=== PATIENT | female | born 1985 | race Caucasian/White ===

== ENCOUNTER 2024-01-02 10:01 | Emergency (ER) | payer OTHER, SELFPAY ==
[2024-01-02 10:06] VITALS: BP 154/93
--- NOTE | 2024-01-02 10:48 | ED.GENMED ---
History of Present Illness
General
Chief Complaint: Breathing Problem
Source: patient and family
Time Seen by Provider: 01/02/24 10:28
History of Present Illness
History of Present Illness:
38-year-old female with a history of 'long-haul' COVID, who takes a variety of different pulmonary medications every day, states that she was improving over the past few months with less need for rescue inhaler. However, her children got ill with a
URI and she then developed a 'junky' cough on or about December 13. She describes noticing wheezing at the end of her breath. She spoke to her pulmonary doctor via telemedicine on Sunday the and was put on a prednisone taper. She then
developed thrush, went to an urgent care, and was started ideation for that. By that Sunday she continued to have a productive cough and she called her doctor and was put on doxycycline for 7 days. She states she was 'never really short of
breath'. She continued to experience thrush like symptoms associated with a mild sore throat so she went to the urgent care again and had a strep test that was negative and was prescribed a can for 3 days which she was compliant with. She says she
was seen by her destination specialist on Sunday and she 'sounded clear'. However, since Sunday, she notes increasing productive cough, described as 'clear junk' associated with a hoarse voice for the last 3 weeks. She did have a headache yesterday that
was relieved with Advil. She called her destination specialist today and was referred to the emergency department to get a chest x-ray and a viral panel. Patient denies abdominal pain, leg swelling, nausea, vomiting, fever. She does have mild chest
discomfort likely from coughing she denies pleuritic chest pain.
Past History
Past History
ED Past Medical History: Other (Long COVID, sleep apnea)
ED Past Surgical History: and Tonsilectomy
Social History
Tobacco: Non-smoker
Alcohol: None
Drug: None
Personal:
Living: with family
Phy Exam
Physical Exam
Physical Exam:
GENERAL: Alert , in no apparent distress
EYE: pupils equal and reactive
NECK: Supple, no significant adenopathy.
ENT: o/p clr, mmm, no trismus, no drool, slightly hoarse voice, uvula midline, no exudate, no erythema, no abnormalities noted, no thrush noted.
CARDIAC: Regular rate and rhythm .
LUNGS: Clear breath sounds bilaterally, no acute respiratory distress, no wheezes/rales/rhonchi, speaks in full sentences easily
ABDOMEN: Soft, without focal tenderness, no r/g, no cvat
NEUROLOGICAL: Alert and oriented, no focal neuro deficits
SKIN: Warm and dry, skin intact.
MUSCULOSKELETAL: No edema, well perfused.
PSYCH: Normal and appropriate interaction.
Course
Orders/Labs/Results
Orders:
Orders
01/02/24 10:48
CR Chest - 2 Views Urgent
Comment:
Reason For Exam: cough, hx long haul covid
01/02/24 11:08
COVID-19 Antigen Urgent
Source: Nasal Swab
Influenza A+B Rapid Molecular Urgent
EMILIA Source: Nasal Swab
Specimen Description:
RSV [Respiratory Syncytial Virus] Urgent
EMILIA Source: Nasal Swab
Specimen Description:
Date Specimen was Collected: 01/02/24
Time Specimen was Collected: 11:01
Vital Signs
Initial and Last Documented VS:
Initial Vital Signs
Temp Pulse Resp BP Pulse Ox
97.7 F 65 18 154/93 100
01/02/24 10:06 01/02/24 10:06 01/02/24 10:06 01/02/24 10:06 01/02/24 10:06
Last Documented Vital Signs
Temp Pulse Resp BP Pulse Ox
97.7 F 69 18 132/71 99
01/02/24 10:06 01/02/24 12:42 01/02/24 12:42 01/02/24 12:42 01/02/24 12:42
*Critical Care Note
Total Time (30-74mins, 75-104mins- exclusive of procedures): Not Applicable
Update Note
Update Note:
Patient presents to the Emergency Department with __persistent cough and hoarse voice
Number and Complexity of Problems Addressed at the Encounter
� Chronic conditions affecting care:
� Acute Exacerbation and/or Progression of Chronic Illness:
� Differential Diagnosis includes: But not limited to worsening long COVID symptoms, bronchitis, pneumonia, etc.
Amount and/or Complexity of Data to be Reviewed and Analyzed
� I performed an independent evaluation of and my interpretation is:
EKG:
CT:
Xrays:cxr read by me nad
Laboratory Studies:unremarkable
Other:
� Review of other/old records reveals:
� Clinical information was obtained by an independent historian:
� Prescriptions/Medications Considered but not given:
� Further testing considered but not performed:
Risk of Complications and/or Morbidity or Mortality of Patient Management
� Social determinants of health affecting care:
� Discussion with other providers (PCP, Hospitalists, Consultants, etc):
� Escalation of care including admission/observation vs risk of discharge considered:call placed to pts pulmonary doctor. D/W DR calin quintero, aware of cxr and results here, agrees with plan to d/c and he will d/u with pt. pox
wnl, lungs cta, no further rec.
ED Attending Note
-
Portions of this chart may have been created with voice recognition software.� Occasional wrong word or��sound alike� substitutions may have occurred due to the inherent limitations of voice recognition software.
Discharge Plan
Departure
Patient Disposition: Home (Routine Discharge)
Date of Disposition: 01/02/24
Time of Disposition: 13:03
Patient with high blood pressure during this ER visit?: Yes
Condition: Good
Discharge Problem:
Cough
Instructions: Cough, Adult ED, BLOOD PRESSURE
Prescriptions:
No Action
levalbuterol HCl 0.63 MG/3 ML solution for nebulization
0.63 mg inhalation R TID
Dupixent Pen 300 MG/2 ML pen injector
300 mg SQ Q2W
fluticasone propionate [Flovent HFA] 220 mcg/actuation Hfa Aerosol Inhaler
2 puff INHALATION BID
Referrals:
Sia Ruggiero MD [Active] - Next open appointment
Mele Vazquez MD [Family Provider] -
Activity Restrictions/Additional Instructions:
IF YOU DEVELOP PERSISTENT FEVER, VOMITING, TROUBLE BREATHING, NEW/WORSENING CHEST PAIN, GET WORSE, OR OTHER WORRISOME SIGNS, GO TO THE ER IMMEDIATELy!
Interventions
Interventions:
*Risk Screen - Suicide Last Done: 01/02/24 10:06
*General Assessment Last Done: 01/02/24 10:06
*Neglect/Abuse Screening Last Done: 01/02/24 10:06
ED- Fall Risk Assessment Last Done: 01/02/24 10:53
*ED COVID-19 Vaccine History Last Done: 01/02/24 10:53
ED- Cardiac Assessment Last Done: 01/02/24 10:53
ED- Pulmonary Assessment Last Done: 01/02/24 10:53
Discharge Date and Time
Print Language: TUNISIAN
[2024-01-02 10:53] VITALS: BMI 35.8
[2024-01-02 11:08] VITALS: BP 126/62
[2024-01-02 11:32] LABS: COVID-19 Antigen Negative (Negative)
[2024-01-02 12:42] VITALS: BP 132/71
--- NOTE | 2024-01-02 13:55 | EDRN ---
Reviewed discharge instructions with patient. Verbalized understanding. Ambulated with steady gait to the lobby.
[2024-01-02 14:08] VITALS: BP 133/86
== END 2024-01-02 13:55 | disposition home or self-care (01) ==
LOC: EMR 10:01
PROVIDERS: EMERGENCY PHYSICIAN Emergency Medicine; FAMILY PHYSICIAN Family Medicine
DX: R05.9 Cough, unspecified (principal); Z86.16 Personal history of COVID-19; G47.30 Sleep apnea, unspecified
CPT/HCPCS: 99284; 71046; 87502; 87807; 87811

== ENCOUNTER 2024-12-10 17:30 | Emergency (ER) | payer OTHER, SELFPAY ==
[2024-12-10 17:34] VITALS: BP 146/102
--- NOTE | 2024-12-10 18:43 | ED.MUSCINJ ---
HPI-Injury
General
Chief Complaint: Musculo-Skeletal Complaint
Source: patient
Exam Limitations: none
Time Seen by Provider: 12/10/24 18:21
Nursing documentation reviewed up to this point in time: agreed with
History of Present Illness-Injury
Is this injury a work related problem?: No
Is pt an associate of [facility]?: No
Initial Injury comments:
Patient to ED with right 5th toe pain. States she hit to on light post. Initially toe looked displaced and she reports pushing toe back into position. Injury occurred just [employer]
Past History
Past History
ED Past Medical History: Other (Long COVID, sleep apnea)
ED Past Surgical History: and Tonsilectomy
Social History
Tobacco: Non-smoker
Alcohol: None
Drug: None
Personal:
Living: with family
Review of Systems
Review of Systems
Allergies reviewed?: Yes
All Other Systems: ROS reviewed and negative except as documented in HPI and ROS
Constitutional: Reports no symptoms
Musculoskeletal: Reports joint pain (pain to right 5th toe)
Skin: Reports no symptoms
Neurological: Reports no symptoms
Psychiatric: Reports no symptoms
Musculoskeletal Injury Exam
Musculoskeletal Injury Exam
Right Fifth Toe:
Pain with Movement?: Moderate
Tender to palpation?: Moderate
Soft tissue swelling?: Mild
External deformity and angulation?: None
Joint effusion?: None
Contusion?: Moderate
Hematoma-local bleeding into tissue?: Mild
Crepitus with movement?: No
Joint instability?: No
Malalignment/deformity?: No
Range of motion: Limited
Distal skin color and temperature: normal-warm & good color
Capillary Refill: normal
Normal distal neurovascular exam?: Yes
Peripheral Pulses: posterior tibial (right): 3+ and dorsalis pedis (right): 3+
Phy Exam
General Physical Exam
General Presentation: well appearing and no apparent distress
General age: appears stated age
General Skin: warm and dry
General Habitus: normal
General Mental: alert
Musculoskeletal Exam
Musculoskeletal Exam: neuro vasc intact
Skin Exam
Skin Exam: normal color, warm/dry and no rash
Psychiatric Exam
Psychiatric Exam: normal mood/affect
Injury Course
Orders/Labs/Results
Orders:
Orders
12/10/24 17:36
CR Foot - Right Min 3 Views Urgent
Comment:
Reason For Exam: injury
12/10/24 18:41
Genevieve Tape Right-Treatment ONCE
Cast Shoe Right-Treatment ONCE
*Radiology
Radiology exam reviewed: radiology read reviewed
*Pulse Oximetry
SaO2: 99
Oxygen Mode of Delivery: Room air
Patient hypoxic: no
*Critical Care Note
Total Time (30-74mins, 75-104mins- exclusive of procedures): Not Applicable
Update Note
Update Note:
Patient to ED with right 5th toe pain after hitting toe on light post. Xray concens fx to proximal phalanx #5. WIll genevieve tape toe, place in cast shoe. She is discharged home and will follow up with podiatry.
ED Attending Note
-
Portions of this chart may have been created with voice recognition software.� Occasional wrong word or��sound alike� substitutions may have occurred due to the inherent limitations of voice recognition software.
Discharge Plan
Departure
Patient Disposition: Home (Routine Discharge)
Date of Disposition: 12/10/24
Time of Disposition: 18:41
Patient with high blood pressure during this ER visit?: No
Condition: Good
Covid-19: Not Applicable
Discharge Problem:
Fracture of toe
Instructions: Ibuprofen, Using Cold for Pain, Toe Fracture ED
Prescriptions:
No Action
levalbuterol HCl 0.63 MG/3 ML solution for nebulization
0.63 mg inhalation R TID
Dupixent Pen 300 MG/2 ML pen injector
300 mg SQ Q2W
fluticasone propionate [Flovent HFA] 220 mcg/actuation Hfa Aerosol Inhaler
2 puff INHALATION BID
Referrals:
Jeff Abbott DPM [Specified Professional Personl, Podiatry] - Call in 1-3 days for appt
Mele Vazquez MD [Family Provider, Family Practice]
Stand Alone Forms: Return to Work
Interventions
Interventions:
*General Assessment Last Done: 12/10/24 17:34
Discharge Date and Time
Print Language: [email or web address]
== END 2024-12-10 20:08 | disposition home or self-care (01) ==
LOC: EMR 17:30
PROVIDERS: EMERGENCY PHYSICIAN Emergency Medicine; FAMILY PHYSICIAN Family Medicine
DX: S92.511A Displaced fracture of proximal phalanx of right lesser toe(s), initial encounter for closed fracture (principal); W22.8XXA Striking against or struck by other objects, initial encounter; M79.674 Pain in right toe(s); G47.30 Sleep apnea, unspecified; Z98.891 History of uterine scar from previous surgery
CPT/HCPCS: 99283; 73630

== ENCOUNTER → 2024-12-30 16:40 | Outpatient (REF) | payer OTHER, SELFPAY | LOC: RSP 16:40 | PROVIDERS: ATTENDING PHYSICIAN Nurse Practitioner Family | DX: J45.909 Unspecified asthma, uncomplicated (principal) | CPT/HCPCS: 88738; 94010; 94727; 94729 ==